=== PATIENT | male | born 1965 | race Caucasian/White ===

== ENCOUNTER 2021-02-18 09:54 | Emergency (ER) | payer MEDICARE, OTHER, SELFPAY ==
[2021-02-18 10:20] VITALS: BP 155/94; PULSE 84; RESP 20; TEMP 36.6; O2SAT 97
[2021-02-18] MEDS: TETANUS,DIPHTHERIA,AC PERTUSSIS ADULT 0.5 ML (ADACEL) IM (10:27)
--- NOTE | 2021-02-18 10:32 | ED.WOUNDLAC ---
HPI - Wound/Laceration General Chief Complaint: Wound/Laceration Stated Complaint: lac on R lower leg Source: patient Mode of arrival: ambulatory History of Present Illness HPI narrative: this is a 55-year-old gentleman that presents with a laceration to his right lower leg about 4cm mildly gaping that occurred about 45 minutes ago needs his tetanus shot and no other injuries. Onset (ago): hour(s) Location: other ( right lower extremity) Extremity Location: Right: lower leg ( 4cm gaping laceration right lower leg) Place: home Patient tetanus UTD: No Context: accidental Associated symptoms: none Related Data Allergies Allergy/AdvReac Type Severity Reaction Status Date / Time hydromorphone Allergy Unknown Unknown Verified 02/18/21 10:26 Review of Systems Review of Systems: All systems reviewed & are unremarkable except as noted in HPI and below PMFSH Past Medical History Medical History (Updated 02/18/21 @ 10:36 by Phil Haddad MD) Onychomycosis Family History Family History Father Family history of pancreatic cancer Mother Family history of malignant neoplasm of breast in first degree relative Bone cancer Social History Social History Tobacco type: smokeless tobacco Smokeless tobacco user: chewing tobacco Second hand tobacco smoke exposure: No Alcohol intake: never Gender identity (if verbalized by the patient): Male Exam Const: General: no acute distress and alert Orientation/consciousness: patient oriented x3 HENMT: Head: normal to inspection Eyes: Conjunctivae: conjunctivae normal Pupils: Equal, round and reactive pupils present Neck: Neck: normal visual inspection, no lymphadenopathy and no meningeal signs Chest: Chest palpation & inspection: normal inspection of the chest Resp: Effort & Inspection: normal respiratory effort Cardio: Rate: regular rate Rhythm: regular rhythm GI: GI Palp: Yes Tenderness to palpation present (GI) Back/Spine/Pelvis: Back: no CVA tenderness Skin: General skin exam: normal color Rashes: no rashes Other: 4Cm mildly gaping laceration to his right lower extremity Neuro: General: moves all extremities Extrem: General: normal to inspection and no pedal edema Course Course Emergency Course: patient was prepped and sutures were placed. Updated patient with his tetanus vaccine Vital Signs Vital signs: Vital Signs Temperature 36.6 C 02/18/21 10:20 Pulse Rate 84 02/18/21 10:20 Respiratory Rate 20 02/18/21 10:20 Blood Pressure 155/94 H 02/18/21 10:20 Pulse Oximetry 97 02/18/21 10:20 Temperature 36.6 C 02/18/21 10:20 Pulse Rate 84 02/18/21 10:20 Respiratory Rate 20 02/18/21 10:20 Blood Pressure 155/94 H 02/18/21 10:20 Pulse Oximetry 97 02/18/21 10:20 Procedures Laceration Laceration 1: Date: 02/18/21 Time: 10:35 Site: lower extremity Side (If applicable): right Size (cm): 4 Description: linear Depth: simple, single layer Local Anesthetic: lidocaine 1% Amount of anesthesia used (mL): 8 Pre-repair: wound explored and irrigated ====== Skin Level ====== Skin layer closed with: nylon Size (cm): 4-0 Number of sutures: 8 Technique: simple, interrupted ====== Subcutaneous Layer ====== ====== Muscle Layer ====== ====== Tendon Layer ====== Critical Care Time Critical Care Time Critical Care Time: No Discharge Plan Discharge Clinical Impression: Laceration Patient Disposition: Home, Self-Care Condition: Stable Instructions: Antibiotic Form, Laceration (ED) Additional Instructions: follow-up with primary care physician in 1 week for suture removal. Prescriptions: No Action meloxicam 15 mg tablet 15 mg PO DAILY Qty: 90 RF: 4 hydrocodone-acetaminophen [N
[2021-02-18 10:50] VITALS: BP 142/81; PULSE 85; RESP 20; TEMP 36.7; O2SAT 96
== END 2021-02-18 10:58 | disposition home or self-care (01) ==
PROVIDERS: Emergency Provider Emergency Medicine
DX: S81.811A Laceration without foreign body, right lower leg, initial encounter (principal); W45.8XXA Other foreign body or object entering through skin, initial encounter
CPT/HCPCS: 12002; 90471; 90715; 99282

== ENCOUNTER 2021-04-07 21:34 | Emergency (ER) | payer OTHER, MEDICARE, SELFPAY ==
--- NOTE | ~2021-04-07 | XR_ITS ---
EXAMINATION: XR elbow LT 2V DATE: 04/07/2021 22:43 INDICATION: Left elbow pain and limited range of motion post fall TECHNIQUE: Anteroposterior and lateral views of the left elbow were obtained. COMPARISON: None. FINDINGS: Alignment is normal. No fracture or joint effusion. Joint spaces are relatively preserved but with sm all marginal osteophytes consistent with at least mild osteoarthritis. Enthesophyte at the proximal t ip of the olecranon. Soft tissues are unremarkable. IMPRESSION: 1. No left elbow joint effusion or acute osseous abnormality. Reviewed, dictated and finalized at location A.
--- NOTE | ~2021-04-07 | XR_ITS ---
EXAMINATION: XR shoulder LT min 2V DATE: 04/07/2021 22:42 INDICATION: Left shoulder pain and limited range of motion. TECHNIQUE: AP internally and externally rotated, AP oblique externally rotated and transscapular Y vi ews of the left shoulder were obtained. COMPARISON: None FINDINGS: Normal alignment. No fracture. Glenohumeral joint is normal. Moderate acromioclavicular osteoarthrit is. Moderate-sized anterior subacromial spur. Cystic change along the greater tuberosity which can be seen with rotator cuff disease. Soft tissues are unremarkable. Visualized portions of the lungs are clear. IMPRESSION: Degenerative changes at the left shoulder as detailed above. No acute osseous abnormality. Reviewed, dictated and finalized at location A. IMPRESSION: Degenerative changes at the left shoulder as detailed above. No acute osseous a bnormality.
[2021-04-07 22:08] VITALS: BP 130/88; PULSE 96; RESP 22; TEMP 37; O2SAT 99
--- NOTE | 2021-04-07 23:05 | ED.GENADULT ---
HPI - General Adult General Chief complaint: Extremity Injury, Upper Stated complaint: arm pain Source: patient Mode of arrival: ambulatory Limitations: no limitations History of Present Illness HPI narrative: Abdullahi is a 55M with a PMH of OA, insomnia, male hypogonadism, obesity, diabetes, and hypotriglyceridemia that presented to the ED with pain in his left shoulder after a fall. He fell a few feet out of his 5th wheel onto his left shoulder. He had immediate pain, swelling and weakness in his shoulder and elbow. He did not hit his head or neck and has no other injuries. Related Data Allergies Allergy/AdvReac Type Severity Reaction Status Date / Time hydromorphone Allergy Unknown Unknown Verified 03/01/21 13:18 Review of Systems Constitutional: Constitutional: Reports no additional constitutional complaints Eyes: Eyes: Reports no additional eye complaints ENT: Reports system reviewed and no additional complaints, except as documented Cardiovascular: Cardiovascular: Reports no additional cardiovascular complaints Respiratory: Respiratory: Reports no additional respiratory complaints Gastrointestinal: Gastrointestinal: Reports no additional gastrointestinal complaints Genitourinary: Genitourinary: Reports no additional male genitourinary complaints Musculoskeletal: Musculoskeletal: Reports as per HPI Integumentary/Breasts: Skin/Breast: Reports system reviewed and no additional complaints, except as docu Neurologic: Reports system reviewed and no additional complaints, except as documented Psychiatric: Psychiatric: Reports no additional psychiatric complaints Endocrine: Endocrine: Reports no additional endocrine complaints Hematologic/Lymphatic: Hematologic/Lymphatic: Reports no additional hematologic/lymphatic complaints Allergic/Immunologic: Allergic/Immunologic: Reports no additional allergic/immunologic complaints [facility] Past Medical History Medical History Onychomycosis Family History Family History Father Family history of pancreatic cancer Mother Family history of malignant neoplasm of breast in first degree relative Bone cancer Social History Social History Tobacco type: smokeless tobacco Smokeless tobacco user: chewing tobacco Second hand tobacco smoke exposure: No Alcohol intake: never Substance use: never Gender identity (if verbalized by the patient): Male Exam Const: General: no acute distress and alert Orientation/consciousness: patient oriented x3 Limitations: No altered mental status HENMT: Head: normal to inspection Other: atraumatic Eyes: Conjunctivae: conjunctivae normal Pupils: Equal, round and reactive pupils present Neck: Neck: normal visual inspection Chest: Chest palpation & inspection: normal inspection of the chest Resp: Effort & Inspection: normal respiratory effort Cardio: Rate: regular rate Skin: General skin exam: normal color Rashes: no rashes Neuro: General: patient oriented x3 and moves all extremities Extrem: Other: Left shoulder: TTP on the lateral and anterior sides. Had swelling over the proximal biceps tendon and TTP in the biceps groove. He was only able to flex his elbow to 45 degrees. he could only flex and abduct his left shoulder to 60 degrees Psych: Appearance: grossly normal Mental Status: mental status grossly normal Course Course Emergency Course: EXAMINATION: XR chest 1V portable DATE: 04/07/2021 21:25 INDICATION: Anterior left lower chest pain TECHNIQUE: frontal view of the chest was obtained. COMPARISON: Chest radiograph dated 02/27/21 FINDINGS: The lungs remain clear with no focal airspace opacities, pulmonary edema, pleural effusion or pneumothorax. Borderline heart size accounting for AP technique. Three lead pacemaker/AICD seen with leads projecting
[2021-04-07 23:37] VITALS: BP 142/80; PULSE 78; RESP 18; TEMP 36.6; O2SAT 98
== END 2021-04-07 23:38 | disposition home or self-care (01) ==
PROVIDERS: Emergency Provider Family Medicine; PCP Family Medicine
DX: M25.512 Pain in left shoulder (principal)
CPT/HCPCS: 73030; 73070; 99282; 99284